=== PATIENT | male | born 1970 | race Caucasian/White ===

== ENCOUNTER 2021-03-11 22:25 | Inpatient (IN) | payer MEDICAID ==
[~2021-03-11] VITALS: Ht 193 cm; Wt 102.8 kg
[~2021-03-11 22:25] MED LIST: HYDR12.529 PO; IBUPROFEN; OMEP20CA4 PO; RIVA10TA PO
[2021-03-11] MEDS ORDERED: ASPIRIN 81MG TABLET PO ONE (23:00)
[2021-03-11] MEDS ORDERED: NITROGLYCERIN 0.4MG TABLET SL SL PRN (23:00)
[2021-03-11 23:22] LABS: HEMATOCRIT. 43.3 % (42.0-52.0); HEMOGLOBIN. 14.8 g/dL (14.0-18.0); MEAN CORPUSCULAR HEMOGLOBIN 29.6 pg (28.0-32.0); MEAN CORPUSCULAR VOLUME 86.9 fL (80.0-94.0); MEAN PLATELET VOLUME 7.4 fl (7.4-10.4); PLATELET 187 x1000/uL (130-400); RED BLOOD CELL COUNT 4.98 mill/uL (4.7-6.1); RED CELL DISTRIBUTION WIDTH 13.4 % (11.6-14.6)
[2021-03-11 23:27] LABS: CHLORIDE 109 mEq/L (98-107)
[2021-03-11 23:33] LABS: INR 1.1; PROTHROMBIN TIME 11.9 sec (9.6-11.0)
[2021-03-11 23:51] LABS: *AMPHETAMINES SCREEN URINE NEGATIVE (NEGATIVE); CANNABINOID URINE SCREEN NEGATIVE (NEGATIVE); PHENCYCLIDINE URINE SCREEN NEGATIVE (NEGATIVE)
[2021-03-11 23:52] LABS: *BARBITURATES SCREEN URINE NEGATIVE (NEGATIVE); *BENZODIAZEPINES SCREEN URINE NEGATIVE (NEGATIVE); *COCAINE SCREEN URINE NEGATIVE (NEGATIVE); METHADONE URINE SCREEN NEGATIVE (NEGATIVE); OPIATES URINE SCREEN NEGATIVE (NEGATIVE)
[2021-03-12] MEDS ORDERED: SODIUM CHLORIDE 0.9% 500 ML IV ONE (01:45)
[2021-03-12 03:15] LABS: PLATELET ESTIMATE NORMAL
[2021-03-12] MEDS ORDERED: ACETAMINOPHEN 325MG TABLET PO PRN (14:15)
[2021-03-12] MEDS ORDERED: ONDANSETRON HCL 4MG/2ML INJ IV PRN (14:15)
[2021-03-12 16:00] VITALS: BP 100/76
[2021-03-12 16:45] VITALS: BP 100/76
[2021-03-12] MEDS ORDERED: RIVAROXABAN 20 MG TABLET PO SCH (17:00)
[2021-03-12 20:00] VITALS: BP 139/99
[2021-03-12] MEDS ORDERED: PNEUMOCOCCAL 23-VAL P-SAC VAC 0.5 ML IM ONE (20:00)
[2021-03-12] MEDS ORDERED: INFLUENZA VACCINE 05/PF 0.5 ML SYRINGE IM ONE (20:00)
[2021-03-12] MEDS ORDERED: HYDROCODONE/ACETAMINOPHEN 5/325MG TABLET PO PRN (23:00)
[2021-03-13] VITALS: BP 108/76
[2021-03-13 05:32] LABS: HEMATOCRIT. 44.2 % (42.0-52.0); HEMOGLOBIN. 15.1 g/dL (14.0-18.0); MEAN PLATELET VOLUME 8.4 fl (7.4-10.4); PLATELET 196 x1000/uL (130-400); RED BLOOD CELL COUNT 5.03 mill/uL (4.7-6.1); RED CELL DISTRIBUTION WIDTH 13.9 % (11.6-14.6)
[2021-03-13 06:26] LABS: CHLORIDE 106 mEq/L (98-107)
[2021-03-13 08:00] VITALS: BP 120/76
[2021-03-13] MEDS ORDERED: METOPROLOL TARTRATE 50MG TABLET PO SCH (09:00)
[2021-03-13] MEDS ORDERED: RIVA20TA PO (11:08)
[2021-03-13] MEDS ORDERED: METO-539 PO (11:08)
[2021-03-13 12:00] VITALS: BP 123/83
[2021-03-13 14:19] LABS: PLATELET ESTIMATE NORMAL
[2021-03-13 16:08] VITALS: BP 123/83
== END 2021-03-13 16:34 | disposition home or self-care (01) | DRG 203 ==
LOC: ER 22:25 → EDBEDREQDT 03-12 00:20 → EDBEDREQTM 03-12 00:20 → EDBEDREQ 03-12 00:20 → MICUSO 03-12 12:28 → 6WST 03-12 14:38
PROVIDERS: ADMIT Internal Medicine; ATTEND Internal Medicine
DX: R07.9 Chest pain, unspecified (principal); E87.8 Other disorders of electrolyte and fluid balance, not elsewhere classified; E66.9 Obesity, unspecified; I48.91 Unspecified atrial fibrillation; F10.21 Alcohol dependence, in remission; F17.200 Nicotine dependence, unspecified, uncomplicated; I10 Essential (primary) hypertension; Z88.0 Allergy status to penicillin; Z88.8 Allergy status to other drugs, medicaments and biological substances; Z68.27 Body mass index [BMI] 27.0-27.9, adult; Z79.899 Other long term (current) drug therapy; Z79.01 Long term (current) use of anticoagulants; Z71.6 Tobacco abuse counseling
CPT/HCPCS: 36415; 71045; 80048; 80053; 80305; 83880; 84484; 85025; 90686; 90732; 93005; 93306; 99285; J7030

== ENCOUNTER 2023-06-27 06:45 | Emergency (ER) | payer MEDICAID ==
[~2023-06-27] VITALS: Ht 175.3 cm; Wt 82.0 kg
[~2023-06-27 06:45] MED LIST changes: +METO-539 PO; +RIVA20TA PO
[2023-06-27 06:51] VITALS: BP 126/69; PULSE 68; RESP 16; TEMP 98.2; O2SAT 100
[2023-06-27] MEDS ORDERED: ASPIRIN 81MG TABLET PO ONE (07:00)
== END 2023-06-27 07:47 | disposition left against medical advice (07) ==
LOC: ER 06:45
DX: R07.89 Other chest pain (principal); I48.91 Unspecified atrial fibrillation; I10 Essential (primary) hypertension; Z72.0 Tobacco use; Z88.0 Allergy status to penicillin; Z88.6 Allergy status to analgesic agent; Z88.5 Allergy status to narcotic agent; Z98.890 Other specified postprocedural states
CPT/HCPCS: 93005; 99283

== ENCOUNTER 2023-06-27 08:38 | Emergency (ER) | payer MEDICAID ==
[~2023-06-27] VITALS: Ht 172.7 cm; Wt 77.0 kg
[2023-06-27 08:44] VITALS: BP 122/94; PULSE 57; RESP 16; TEMP 98.3; O2SAT 99
[2023-06-27] MEDS ORDERED: ONDANSETRON HCL 4MG/2ML INJ IV STA (08:55)
[2023-06-27] MEDS ORDERED: MORPHINE SULFATE 4 MG/ML INJ (FOR IV/IM USE) IV STA (08:55)
== END 2023-06-27 09:39 | disposition left against medical advice (07) ==
LOC: ER 08:38
DX: R07.89 Other chest pain (principal); I48.91 Unspecified atrial fibrillation; I10 Essential (primary) hypertension; Z72.0 Tobacco use; Z98.890 Other specified postprocedural states; Z79.899 Other long term (current) drug therapy
CPT/HCPCS: 93005; 99283

== ENCOUNTER 2023-06-27 12:43 | Emergency (ER) | payer MEDICAID ==
[~2023-06-27] VITALS: Ht 188 cm; Wt 82.0 kg
[2023-06-27 12:47] VITALS: BP 138/90; PULSE 80; RESP 16; TEMP 98.3; O2SAT 98
== END 2023-06-27 14:15 | disposition left against medical advice (07) ==
LOC: ER 12:43
DX: R07.89 Other chest pain (principal)
CPT/HCPCS: 99281

== ENCOUNTER 2024-05-01 01:53 | Emergency (ER) | payer MEDICAID ==
[~2024-05-01] VITALS: Ht 180.3 cm; Wt 109.0 kg
[~2024-05-01 01:53] MED LIST changes: +APIX5TAB PO; +ATOR40TA70 PO; -HYDR12.529 PO; -IBUPROFEN; +ISOS5TAB4 PO; -OMEP20CA4 PO; -RIVA10TA PO; -RIVA20TA PO; +SPIR25TA6 PO
[2024-05-01 01:56] VITALS: BP 134/74; PULSE 128; RESP 15; TEMP 36.8; O2SAT 99
== END 2024-05-01 02:09 | disposition left against medical advice (07) ==
LOC: ER 02:07
DX: R07.9 Chest pain, unspecified (principal); Z53.21 Procedure and treatment not carried out due to patient leaving prior to being seen by health care provider

== ENCOUNTER 2024-06-11 17:45 | Emergency (ER) | payer MEDICAID ==
[~2024-06-11] VITALS: Ht 177.8 cm; Wt 116.0 kg
[2024-06-11 17:48] VITALS: BP 121/84; PULSE 115; RESP 15; TEMP 37; O2SAT 99
== END 2024-06-11 20:00 | disposition home or self-care (01) ==
LOC: ER 17:45 → EDBEDREQ 18:22 → ER 20:00
DX: Z00.00 Encounter for general adult medical examination without abnormal findings (principal); F17.200 Nicotine dependence, unspecified, uncomplicated; F10.90 Alcohol use, unspecified, uncomplicated; I51.7 Cardiomegaly; I48.91 Unspecified atrial fibrillation; Z79.01 Long term (current) use of anticoagulants; Z79.899 Other long term (current) drug therapy; Z88.0 Allergy status to penicillin; Z88.5 Allergy status to narcotic agent; Y90.9 Presence of alcohol in blood, level not specified
CPT/HCPCS: 71045; 93005; 99283

== ENCOUNTER 2024-06-11 20:51 | Emergency (ER) | payer MEDICAID ==
[~2024-06-11] VITALS: Ht 182.9 cm; Wt 98.0 kg
[2024-06-11 21:00] VITALS: O2SAT 95
[2024-06-12 02:13] VITALS: BP 115/85; PULSE 64; RESP 12; TEMP 36.9; O2SAT 99
== END 2024-06-12 02:16 | disposition home or self-care (01) ==
LOC: ER 20:51
DX: R07.89 Other chest pain (principal); I10 Essential (primary) hypertension; I48.91 Unspecified atrial fibrillation; Z59.00 Homelessness unspecified; Z79.01 Long term (current) use of anticoagulants; Z79.899 Other long term (current) drug therapy; Z88.5 Allergy status to narcotic agent; Z88.0 Allergy status to penicillin
CPT/HCPCS: 93005; 99283